=== PATIENT | male | born 1965 | race Two or more races ===

== ENCOUNTER 2022-11-10 14:38 | Emergency (ER) | payer OTHER ==
[~2022-11-10] VITALS: Ht 182.9 cm; Wt 81.6 kg
--- NOTE | 2022-11-10 14:58 | NUR ---
PATIENT IS IN A HOSPITAL GOWN, HE WAS CHECKED BY SECURITY EARLIER. HE HAS HIS WATCH AND WALLET WITH HIM BUT ON THE TABLE. STATES HE IS HUNGRY. I GAVE HIM A LUNCH TRAY AND A BIG BOTTLE OF WATER.
--- NOTE | 2022-11-10 15:07 | NUR ---
COVID SWAB SENT TO LAB
[2022-11-10 15:08] LABS: HEMATOCRIT 32.1 % (36.7-47.1); MEAN CORPUSCULAR HEMOGLOBIN 28.1 uug (23.8-33.4); MEAN CORPUSCULAR VOLUME 84.8 fL (73.0-96.2); PLATELET COUNT (AUTO) 213 K/uL (152-348)
[2022-11-10 15:20] LABS: ALANINE AMINOTRANSFERASE 36 U/L (16-63); ALKALINE PHOSPHATASE 117 U/L (50-136); ASPARTATE AMINOTRANSFERASE 35 U/L (15-37); BILIRUBIN,DIRECT 0.2 mg/dL (0.0-0.2); BILIRUBIN,TOTAL 0.4 mg/dL (0.2-1.0); CARBON DIOXIDE 24 mmol/L (21-32); CHLORIDE 106 mmol/L (98-107); CREATININE 1.4 mg/dL (0.6-1.3); GLUCOSE 102 mg/dL (74-106); POTASSIUM 3.8 mmol/L (3.5-5.1); TOTAL PROTEIN, SERUM 7.3 g/dL (6.4-8.2); UREA NITROGEN, BLOOD 19 mg/dL (7-18)
--- NOTE | 2022-11-10 15:20 | NUR ---
Patient ate 2 sandwiches, rice, chicken and drank 2 bottles of water
[2022-11-10 15:21] LABS: ACETAMINOPHEN < 2.0 ug/mL (10-30)
[2022-11-10 15:41] LABS: ETHANOL < 3 MG/DL (0-0)
--- NOTE | 2022-11-10 15:49 | NUR ---
Pt is medically cleared by ER .
--- NOTE | 2022-11-10 15:50 | NUR ---
Spoke to Gabbie Barry LCSW from [facility]. Pt agrees to go to [facility] facility on Volunteer basis.
--- NOTE | 2022-11-10 16:15 | NUR ---
Patient is wearing clean warm clothes, he has a wallet, Apple watch and cell phone to call his contacts.
[2022-11-10 16:43] LABS: *AMPHETAMINE, URINE POSITIVE (NEGATIVE); *CANNABINOID, URINE NEGATIVE (NEGATIVE); *COCCAINE, URINE NEGATIVE (NEGATIVE); *OPIATE, URINE NEGATIVE (NEGATIVE); *PHENCYCLIDINE SCREEN,URINE NEGATIVE (NEGATIVE)
--- NOTE | 2022-11-10 17:35 | NUR ---
[facility]
--- NOTE | 2022-11-10 18:24 | NUR ---
Patient ambulated to bathroom with steady gait
--- NOTE | 2022-11-10 18:43 | NUR ---
Jocelyn Barry was here for eval, spoke to patient and cleared for DC. patient denies being suicidal at this time and states he "feels better" and wants to leave. I gave him one more bag of food and water and a TAP card for the bus. States he does not want or need services for homeless needs.
--- NOTE | 2022-11-10 18:58 | NUR ---
DC and Follow up instructions given and explained to patient who states he understands all instructions.. TAP card given Jocelyn gave him resources for homeless services/[facility]/food
[2022-11-10 18:59] VITALS: BP 125/78
== END 2022-11-10 19:01 | disposition home or self-care (01) ==
LOC: ER 14:38
DX: R45.851 Suicidal ideations (principal); F15.90 Other stimulant use, unspecified, uncomplicated; D64.9 Anemia, unspecified; Z20.822 Contact with and (suspected) exposure to COVID-19; F31.9 Bipolar disorder, unspecified; F20.9 Schizophrenia, unspecified; Z59.00 Homelessness unspecified; Z91.52 Personal history of nonsuicidal self-harm
CPT/HCPCS: 36415; 85025; A4663; G0480